=== PATIENT | male | born 1955 | race African-American/Black ===

== ENCOUNTER 2021-10-20 05:58 | Emergency (ER) | payer OTHER ==
[~2021-10-20 05:58] MED LIST: ATORVASTATIN; FLONASE NASAL S16 GM NS; GLUCOPHAGE; LISINOPRIL; Lantus IJ; MVI
[2021-10-20 06:06] VITALS: TEMP 98.9
[2021-10-20 06:51] LABS: HEMATOCRIT 38.9 % (42.0-52.0); HEMOGLOBIN 12.6 g/dl (13.5-18.0); MEAN CELL VOLUME 90 fl (80.0-100.0); MEAN CORPUSCULAR HEMOGLOBIN 29 pg (27-31); MEAN CORPUSCULAR HGB CONC 32 g/dl (33.0-37.0); MEAN PLATELET VOLUME 10.6 fl (7.4-10.4); PLATELET COUNT 328 K/mm3 (130-400); RED BLOOD COUNT 4.32 M/mm3 (4.20-5.60); REDCELL DISTRIBUTION WIDTH-CV 13.1 % (11.5-14.5)
[2021-10-20 07:08] LABS: ALBUMIN 3.8 gm/dL (3.4-4.8); BILIRUBIN,TOTAL 0.2 mg/dL (0.2-1.2); C-REACTIVE PROTEIN 1.26 mg/dL (0.00-0.50); CALCIUM 9.1 mg/dL (8.4-10.2); CREATININE, serum 0.83 mg/dL (0.72-1.25); POTASSIUM 3.4 mmol/L (3.5-4.5); TOTAL PROTEIN 7.6 gm/dL (6.2-8.1)
[2021-10-20 07:28] LABS: BAND 2 % (0-10); EOSINOPHIL 4 % (0-4); NEUTROPHILS 55 % (42.0-75.2); PLATELET ESTIMATE NORMAL (NORMAL)
[2021-10-20 07:29] LABS: LYMPHOCYTE 34 % (20.0-51.0)
[2021-10-20] MEDS ORDERED: ZITHROMAX TRI-500 MG PO (08:47)
[2021-10-20 09:20] VITALS: BP 144/81; PULSE 88
== END 2021-10-20 09:20 | disposition home or self-care (01) ==
LOC: COL.ER 05:58
PROVIDERS: Emergency Medicine
DX: R11.2 Nausea with vomiting, unspecified (principal); R42 Dizziness and giddiness; Z20.822 Contact with and (suspected) exposure to COVID-19
CPT/HCPCS: J2405; J2550; J7030